=== PATIENT | female | born 2000 | race Caucasian/White ===

== ENCOUNTER → 2023-09-04 | Outpatient (CLI) | payer OTHER ==
--- NOTE | 2023-09-04 11:56 | XR ---
EXAMINATION TYPE: XR elbow complete LT DATE OF EXAM: 09/04/2023 COMPARISON: NONE HISTORY: Pain FINDINGS: Three views of the elbow demonstrate no pathologic joint effusion. The osseous structures are intact . There is no acute fracture or dislocation. IMPRESSION: 1. No acute fracture or dislocation. If symptoms persist follow-up study in 7 to 10 days could be ob tained.
== END | disposition home or self-care (01) ==
LOC: RADXRMAIN 11:35
PROVIDERS: ATTEND Emergency Medicine
DX: S53.402A Unspecified sprain of left elbow, initial encounter (principal); R20.9 Unspecified disturbances of skin sensation

== ENCOUNTER → 2024-06-05 | Outpatient (CLI) | payer OTHER ==
--- NOTE | 2024-06-05 12:40 | XR ---
EXAMINATION TYPE: XR knee complete RT DATE OF EXAM: 06/05/2024 12:29 PM COMPARISON: None. CLINICAL INDICATION: Female, 24 years old with history of M25.561 R knee pain, pain TECHNIQUE: 3 view(s) obtained. FINDINGS: Joint spaces are preserved. No acute fracture or dislocation evident. No joint effusion is evident. Follow up exams can be performed as clinically indicated. IMPRESSION: 1. No acute osseous abnormality right knee [facility], Workstation: [facility], 06/05/2024 12:37 PM
== END | disposition home or self-care (01) ==
LOC: RADXRMAIN 12:11
PROVIDERS: ATTEND Emergency Medicine
DX: M25.561 Pain in right knee (principal)